=== PATIENT | male | born 1980 | race Caucasian/White ===

== ENCOUNTER 2022-05-25 14:58 | Outpatient (REF) | payer OTHER, SELFPAY | END 2022-05-25 14:59 | disposition home or self-care (01) | LOC: HO.BBR 14:58 | PROVIDERS: Visit Provider Physician Assistant | DX: D75.1 Secondary polycythemia (principal) | CPT/HCPCS: 85014; 85018; 99195 ==

== ENCOUNTER 2022-06-27 11:05 | Outpatient (REF) | payer OTHER, SELFPAY | END 2022-06-27 11:06 | disposition home or self-care (01) | LOC: HO.BBR 11:05 | PROVIDERS: Visit Provider Physician Assistant | DX: D75.1 Secondary polycythemia (principal) | CPT/HCPCS: 85014; 85018; 99195 ==

== ENCOUNTER 2022-08-15 15:32 | Emergency (ER) | payer OTHER, SELFPAY ==
--- NOTE | ~2022-08-15 | XR_ITS ---
EXAMINATION: XR FINGER, LEFT CLINICAL INFORMATION: Laceration left middle finger COMPARISON: None TECHNIQUE: 3 views of the left middle finger. FINDINGS: The bones and soft tissues are normal. No fracture. Alignment is anatomic. Joint spaces are maintained. No radiopaque foreign body is seen. XR/XR finger LT min 2V IMPRESSION: Normal finger radiographs.
[2022-08-15 16:08] VITALS: BP 149/99; PULSE 85; RESP 18; TEMP 36.6; O2SAT 97; BMI 40.3
--- NOTE | 2022-08-15 16:08 | ED.WOUNDLAC ---
HPI - Wound/Laceration General Chief Complaint: Wound/Laceration <BEBETO Juarez - Last Filed: 08/15/22 16:12> Stated Complaint: laceration left hand <BEBETO Juarez - Last Filed: 08/15/22 16:12> Time Seen by Provider: 08/15/22 17:57 <BEBETO Juarez - Last Filed: 08/15/22 16:12> Source: patient and family ( at bedside) <BEBETO Childress Last Filed: 08/15/22 18:39> Mode of arrival: ambulatory <BEBETO Childress Last Filed: 08/15/22 18:39> Limitations: no limitations <BEBETO Childress Last Filed: 08/15/22 18:39> History of Present Illness HPI narrative: 41-year-old male presenting to the ER with complaints of a middle finger laceration that occurred prior to arrival by a knife. He reports that he bought a new video game and tried to open it up with the night before his came home and he actually stabbed himself with the knife accidentally prior to arrival. Reports he is unsure if he is up-to-date on tetanus. He denies any thoughts of foreign bodies, bony tenderness, weakness, paresthesias or any other complaints or concerns at this time. <BEBETO Childress - Last Filed: 08/15/22 18:39> Onset (ago): minute(s) (Prior to arrival) <BEBETO Childress Last Filed: 08/15/22 18:39> Extremity Location: left: hand (Middle finger distal aspect) <BEBETO Childress - Last Filed: 08/15/22 18:39> Place: home <BEBETO Childress Last Filed: 08/15/22 18:39> Patient tetanus UTD: No <BEBETO Childress - Last Filed: 08/15/22 18:39> Context: accidental <BEBETO Childress Last Filed: 08/15/22 18:39> Associated symptoms: none <BEBETO Childress Last Filed: 08/15/22 18:39> Treatments prior to arrival: bandage <BEBETO Cihldress Last Filed: 08/15/22 18:39> Related Data Home Medications: Previous Rx's Medication Instructions Recorded acetaminophen 300 mg-codeine 30 mg 1 tab PO Q8H PRN pain #10 tabs 08/15/22 tablet <BEBETO Juarez - Last Filed: 08/15/22 16:12> Allergies/Adverse Reactions: Allergies Allergy/AdvReac Type Severity Reaction Status Date / Time amoxicillin Allergy Rash Verified 08/15/22 16:12 cefaclor [From Ceclor] Allergy Rash Verified 08/15/22 16:12 metoclopramide [From Reglan] Allergy Rash Verified 08/15/22 16:12 Penicillins [PCN] Allergy Rash Verified 08/15/22 16:12 <BEBETO Juarez - Last Filed: 08/15/22 16:12> Review of Systems Review of Systems: Constitutional : No Fever, No Chills, Cardiovascular : No Chest Pain, No SOB Respiratory : No Dyspnea Gastrointestinal : No abdominal pain Musculoskeletal : No Joint Swelling Skin : positive skin laceration, No Foreign bodies, No rash, No surrounding erythema Neuro : No Weakness, No Numbness/tingling Psych : No SI/HI/thoughts of self injury <BEBETO Childress - Last Filed: 08/15/22 18:39> Yes all other systems are reviewed and are negative <BEBETO Childress - Last Filed: 08/15/22 18:39> [facility] Past Medical History Attestation statement: The following information was validated with the patient. <BEBETO Childress - Last Filed: 08/15/22 18:39> Source: old records reviewed, obtained from family and nursing notes reviewed <BEBETO Childress - Last Filed: 08/15/22 18:39> Social History Social History: Social History Advance Directives: No Advance Directives Information Provided: Yes <BEBETO Juarez - Last Filed: 08/15/22 16:12> Physical Exam Vital Signs: Vital Signs: Last Vital Signs Temp 97.8 F 08/15/22 16:08 Pulse 85 08/15/22 16:08 Resp 18 08/15/22 16:08 BP 149/99 H 08/15/22 16:08 Pulse Ox 97 08/15/22 16:08 O2 Del Method 08/15/22 16:08 BMI result Body Mass Index 40.3 <BEBETO Juarez - Last Filed: 08/15/22 16:12> Vital Signs: Last Vital Signs Temp 97.8 F 08/15/22 16:08 Pulse 85 08/15/22 16:08 Resp 18 08/15/22 16:08 BP 149/99 H 08/15/22 16:08 Pulse Ox 97 08/15/22 16:08 O2 Del Method 08/15/22 16:08 BMI result Body Mass Index 40.3 vital signs have been reviewed as normal and appeared to be correct. Blood pressure 149/99 Heart rate normal. Respiration rate normal. Temperature normal. Oxygen saturation normal. <BEBETO Childress - Last Filed: 08/15/22 18:39> Appearance: Alert. Oriented X3. No acute distress. Head: Normal external exam. Normocephalic. Atraumatic. Eyes: PERRLA. EOMI. Conjunctiva and sclera normal. Eyelids normal. ENT: Pharynx normal. Uvula midline. Moist mucous membranes. Neck: Normal inspection. Neck supple. FROM. CVS: Normal heart rate and rhythm. Respiratory: No respiratory distress. Painless inspiration. Skin: Skin warm and dry. Normal skin color. Normal skin turgor. Patient with 2 cm intermediate laceration to left hand middle finger at the radial aspect near the fat pad. No active bleeding or foreign bodies or bony tenderness or obvious ligamentous or tendon injury noted. No additional rashes/lesions/lacerations noted. Extremities: Patient only has tenderness over the laceration. No bony tenderness. Otherwise all other extremities exhibit normal range of motion nontender. Neuro: Oriented X 3. No motor deficit. No sensory deficit. Reflexes normal. Normal steady gait. No focal neuro deficits noted. Vascular: + radial pulses/+ 2 distal pedal pulses/+2 dorsalis pedis b/l. Normal cap refill. No cyanosis noted to upper extremity nails and lower extremity toes nails. <BEBETO Childress - Last Filed: 08/15/22 18:39> Course Course Course Narrative: RME - 41 yo male presents today with complaints of left middle finger laceration which occurred this afternoon. Patient states that he was trying to open a video game box with a knife and accidentally cut his left middle finger. He states that he is unsure when his last tetanus immunization was. Left middle finger with 1.5cm, linear, actively oozing. Pressure dressing applied. VSS in triage. Stable to return to waiting room until treatment room becomes available. Plan: xray, will need sutures. tdap ordered <BEBETO Juarez - Last Filed: 08/15/22 16:12> RME - 41 yo male presents today with complaints of left middle finger laceration which occurred this afternoon. Patient states that he was trying to open a video game box with a knife and accidentally cut his left middle finger. He states that he is unsure when his last tetanus immunization was. Left middle finger with 1.5cm, linear, actively oozing. Pressure dressing applied. VSS in triage. Stable to return to waiting room until treatment room becomes available. Plan: xray, will need sutures. tdap ordered <BEBETO Childress - Last Filed: 08/15/22 18:39> Reevaluation(s) Reevaluation #1: Patient now status post laceration repair 6 simple running stitch. Tetanus updated. X-ray obtained and negative for any acute processes.. Will DC home with symptomatic treatment antibiotics along with instructions to return in 10-14 days for suture removal and to follow up prior if signs of infection. Patient understands agrees the plan. <BEBETO Childress - Last Filed: 08/15/22 18:39> Medications Administered Discontinued Medications Generic Name Dose Route Start Last Admin Trade Name Freq PRN Reason Stop Dose Admin Diphtheria/Tetanus/Acell Pertussis 0.5 ml 08/15/22 16:12 08/15/22 18:37 Diphth,Pertus(Acell),Tet Adult 0.5 Ml Syringe IM 08/15/22 16:13 0.5 ml .ONCE ONE Administration Lidocaine HCl 5 ml 08/15/22 17:57 08/15/22 18:37 Lidocaine Hcl 1 % Mpf 5 Ml Vial SUBCUT 08/15/22 17:58 5 ml ONCE ONE Administration <BEBETO Juarez - Last Filed: 08/15/22 16:12> Medications Administered Discontinued Medications Generic Name Dose Route Start Last Admin Trade Name Freq PRN Reason Stop Dose Admin Diphtheria/Tetanus/Acell Pertussis 0.5 ml 08/15/22 16:12 08/15/22 18:37 Diphth,Pertus(Acell),Tet Adult 0.5 Ml Syringe IM 08/15/22 16:13 0.5 ml .ONCE ONE Administration Lidocaine HCl 5 ml 08/15/22 17:57 08/15/22 18:37 Lidocaine Hcl 1 % Mpf 5 Ml Vial SUBCUT 08/15/22 17:58 5 ml ONCE ONE Administration <BEBETO Childress - Last Filed: 08/15/22 18:39> Medical Decision Making Independent Interpretation I performed an independent interpretation of an: Plain X-Ray (I reviewed the x-ray myself and agree with the radiologist reports reviewed this with the patient and at bedside they understand that it is within normal limits) <BEBETO Childress - Last Filed: 08/15/22 18:39> Radiology Impression Discussion of test interpretation with radiology: I have reviewed the radiologist's reading. <BEBETO Childress Last Filed: 08/15/22 18:39> Radiologist Impression: EXAMINATION: XR FINGER, LEFT CLINICAL INFORMATION: Laceration left middle finger? COMPARISON: None? TECHNIQUE: 3 views of the left middle finger. FINDINGS: The bones and soft tissues are normal. No fracture. Alignment is anatomic. Joint spaces are maintained. No radiopaque foreign body is seen. XR/XR finger LT min 2V IMPRESSION: Normal finger radiographs. <BEBETO Childress - Last Filed: 08/15/22 18:39> Independent Historian Clinical information obtained from an independent historian. History obtained from or confirmed by: Spouse <BEBETO Childress - Last Filed: 08/15/22 18:39> Prescription Management I considered prescription management with: Pain Medication <BEBETO Childress Last Filed: 08/15/22 18:39> Procedures Laceration Laceration 1: Site: hand (Middle finger) <BEBETO Childress Last Filed: 08/15/22 18:39> Side (If applicable): left <BEBETO Childress Last Filed: 08/15/22 18:39> Size (cm): 1 <BEBETO Childress Last Filed: 08/15/22 18:39> Description: linear <BEBETO Childress - Last Filed: 08/15/22 18:39> Depth: simple, single layer <BEBETO Childress - Last Filed: 08/15/22 18:39> Local Anesthetic: lidocaine 1% <BEBETO Childress - Last Filed: 08/15/22 18:39> Amount of anesthesia used (mL): 4 <BEBETO Childress - Last Filed: 08/15/22 18:39> Pre-repair: wound explored, irrigated extensively and deep structures intact <BEBETO Childress - Last Filed: 08/15/22 18:39> Skin layer closed with: nylon <BEBETO Childress - Last Filed: 08/15/22 18:39> Size (cm): 5-0 <BEBETO Childress - Last Filed: 08/15/22 18:39> Number of sutures: 6 <BEBETO Childress - Last Filed: 08/15/22 18:39> Technique: simple, interrupted <BEBETO Childress - Last Filed: 08/15/22 18:39> Discharge Plan Discharge Clinical Impression: Laceration <BEBETO Juarez - Last Filed: 08/15/22 16:12> Patient Disposition: Home, Self-Care <BEBETO Juarez - Last Filed: 08/15/22 16:12> Instructions: Finger Laceration (ED) <BEBETO Juarez - Last Filed: 08/15/22 16:12> Prescriptions: New acetaminophen-codeine 300-30 mg tablet 1 tab PO Q8H PRN (Reason: pain) Qty: 10 0RF <BEBETO Juarez - Last Filed: 08/15/22 16:12> Referrals: Roxanne Leblanc PA [Emergency Midlevel Provider] - 10 days (for suture removal return in 7-10 days ) <BEBETO Juarez - Last Filed: 08/15/22 16:12>
[2022-08-15] MEDS: Lidocaine HCl 1 % MPF 5 ML VIAL SUBCUT (18:37)
[2022-08-15] MEDS: Diphth,Pertus(ACell),Tet Adult 0.5 ML SYRINGE IM (18:37)
== END 2022-08-15 18:43 | disposition home or self-care (01) ==
PROVIDERS: Emergency Provider Student in an Organized Health Care Education/Training Program
DX: S61.412A Laceration without foreign body of left hand, initial encounter (principal); W26.0XXA Contact with knife, initial encounter; Y93.89 Activity, other specified; Y92.019 Unspecified place in single-family (private) house as the place of occurrence of the external cause; Y99.9 Unspecified external cause status
CPT/HCPCS: 12041; 73140; 90471; 90715; 99282; 99284

== ENCOUNTER 2022-08-24 11:33 | Emergency (ER) | payer OTHER, SELFPAY ==
--- NOTE | 2022-08-24 11:41 | ED_ITS ---
HPI - General Adult General Chief complaint: General Medical Stated complaint: Suture removal Time Seen by Provider: 08/24/22 11:41 Source: patient Mode of arrival: ambulatory Limitations: no limitations History of Present Illness HPI narrative: 41 yo male presents to the ER for suture removal. He was seen here on 07/26 after he sustained a laceration to his left middle finger while cutting open a video game box with a knife. Six sutures were placed and x-rays were negative. He reports some ongoing pain to the pulp of his finger when he pushes on it or accidentally bangs it on something. He denies any redness, warmth, drainage. Normal ROM of the digit and he denies any numbness or tingling. MD complaint: suture removal Onset (ago): day(s) Location: left and upper extremity Radiation: non-radiation Severity: mild Severity scale (1-10): 4 Quality: aching Pain Consistency: intermittent Relieving factors: rest Exacerbating factors: other (palpation) Associated symptoms: denies other symptoms Treatments prior to arrival: none Related Data Previous Rx's Medication Instructions Recorded acetaminophen 300 mg-codeine 30 mg 1 tab PO Q8H PRN pain #10 tabs 08/15/22 tablet Allergies Allergy/AdvReac Type Severity Reaction Status Date / Time amoxicillin Allergy Rash Verified 08/15/22 16:12 cefaclor [From Ceclor] Allergy Rash Verified 08/15/22 16:12 metoclopramide [From Reglan] Allergy Rash Verified 08/15/22 16:12 Penicillins [PCN] Allergy Rash Verified 08/15/22 16:12 Review of Systems Review of Systems: Yes all other systems are reviewed and are negative [facility] Social History Social History Advance Directives: No Advance Directives Information Provided: No Physical Exam ED Vital Signs: Vital Signs - 24 hr 08/24/22 11:42 Temperature 97.3 F Pulse Rate 76 Respiratory Rate 16 Blood Pressure 134/88 Pulse Oximetry 99 Oxygen Delivery Method Room Air BMI result Body Mass Index 39.4 Appearance: Alert. Oriented X3. No acute distress. HEENT: normal inspection CVS: Normal heart rate and rhythm. Pulses normal. Respiratory: No respiratory distress. Skin: Skin warm and dry. Normal skin color. Normal skin turgor. No rashes. Extremities: left middle index finger with a well healing laceration to the distal palmar portion with [address], no surround erythema or drainage. laceration is mildly tender. FROM of the digit, NV intact disally. Neuro: Oriented X 3. Grossly normal Course Course Course Narrative: 6 sutures were removed. wound healing appropriately, margins well approximated. ongoing wound care discussed. stable for d/c home Medical Decision Making Differential Diagnosis Differential Diagnoses: The differential diagnosis associated with the presentation includes appropriately healing laceration, no evidence of delayed healing or acute infection External Record Review External record reviewed: Outpatient record Prescription Management I considered prescription management with: Pain Medication recommending OTC NSAID and tylenol Critical Care Time Critical Care Time Critical Care Time: No Discharge Plan Discharge Clinical Impression: Visit for suture removal Patient Disposition: Home, Self-Care Instructions: Stitches Removal (ED) Prescriptions: No Action acetaminophen-codeine 300-30 mg tablet 1 tab PO Q8H PRN (Reason: pain) Qty: 10 0RF
[2022-08-24 11:42] VITALS: BP 134/88; PULSE 76; RESP 16; TEMP 36.3; O2SAT 99; BMI 39.4
== END 2022-08-24 11:51 | disposition home or self-care (01) ==
PROVIDERS: Emergency Provider Emergency Medicine Emergency Medical Services; PCP Physician Assistant
DX: Z48.02 Encounter for removal of sutures (principal); S61.213D Laceration without foreign body of left middle finger without damage to nail, subsequent encounter; W27.8XXD Contact with other nonpowered hand tool, subsequent encounter
CPT/HCPCS: 99282

== ENCOUNTER 2022-11-17 19:51 | Emergency (ER) | payer OTHER, SELFPAY ==
--- NOTE | ~2022-11-17 | CT_ITS ---
EXAMINATION: CTA OF THE HEAD AND NECK CLINICAL INFORMATION: Question right MCA thrombus. Right facial weakness. COMPARISON: Head CT on 11/17/2022. TECHNIQUE: Test bolus sequences followed by intravenous administration 70 mL of Omnipaque 350. Helical imaging was performed in the axial plane from the mediastinum to the skull vertex. Delayed postcontrast imaging of the head was also performed. The data was processed at the health information technologist's workstation for generation of MIP sequences. Three-dimensional volume rendered reformatted images were also generated at an offline 3-D workstation. Stenoses are assessed in accordance with NASCET criteria unless otherwise indicated. This CT examination was performed using dose optimization techniques as appropriate, variously including the following: *Automated exposure control *Adjustment of mA and/or kV according to patient size (this includes techniques or standardized protocols for targeted exams where dose is matched to indication/reason for exam; i.e. extremities or head) *Use of iterative reconstruction technique DLP: 1404 mGy-cm. FINDINGS: CTA neck: The imaged aortic arch and origins of the great vessels are normal. The common carotid arteries are widely patent. The carotid bifurcations are normal. The cervical internal carotid arteries are normal. The vertebral arteries opacify normally and are of normal caliber. The soft tissues of the neck are unremarkable. There is a reversal of the normal cervical lordosis and mild to moderate lower cervical spondylosis. The imaged portions of the lungs are clear. CTA head: The intradural vertebral arteries and basilar artery are normal. The posterior cerebral arteries are widely patent. The internal carotid arteries are of normal caliber. The BRIT and MCA vascular complexes bilaterally are normal. No abnormal attenuation is evident within the brain parenchyma. There is no pathologic enhancement on postcontrast imaging. The venous sinuses opacify normally. CT/CT angio head neck stroke IMPRESSION: Normal CT angiogram of the head and neck. Imaging findings reported to Dr. Vazquez at 9:40 PM on 11/17/2022.
--- NOTE | ~2022-11-17 | CT_ITS ---
EXAMINATION: CT HEAD WITHOUT CONTRAST (STROKE PROTOCOL) CLINICAL INFORMATION: Stroke protocol. COMPARISON: None available. TECHNIQUE: Contiguous axial imaging was performed from the skull base to vertex without intravenous administration of contrast. This CT examination was performed using dose optimization techniques as appropriate, variously including the following: *Automated exposure control *Adjustment of mA and/or kV according to patient size (this includes techniques or standardized protocols for targeted exams where dose is matched to indication/reason for exam; i.e. extremities or head) *Use of iterative reconstruction technique DLP: 649 mGy-cm FINDINGS: There is no midline shift. There is no mass effect. There is no hemorrhage. The basal cisterns appear patent. The posterior fossa is grossly within normal limits. There is no extra-axial collection. The casey-white matter differentiation is felt to be maintained. There is subtle decreased attenuation on the right involving the white matter. Image 32. This finding is equivocal. Area of ischemia here cannot be excluded. Grossly clear sinuses on the bone windows. CT/CT head for stroke IMPRESSION: There is no acute midline shift or mass effect or hemorrhage. Cannot rule out a subtle area of decreased attenuation in the parietal white matter on the right in this young patient which may suggest ischemic change here. This finding is however equivocal This critical result was discussed with Tameka Lawton at 8:40 PM hours on 11/17/2022. It was ascertained that the content and urgency of the report was understood at the time of direct communication.
[2022-11-17 19:59] VITALS: BP 141/99; PULSE 109; RESP 20; TEMP 36.8; O2SAT 96; BMI 38.3
--- NOTE | 2022-11-17 20:00 | ED_ITS ---
HPI - General Adult General Chief complaint: General Medical Stated complaint: left side facial discomfort Time Seen by Provider: 11/17/22 20:43 Source: patient Mode of arrival: ambulatory Limitations: no limitations History of Present Illness HPI narrative: Patient with no significant medical history had cold symptoms and right ear infection for last 1 week treated with doxycycline and Zithromax patient's noticed liking left eyelid around 09:00 patient had lunch without any problem no other weakness around 18:00 while gargling salt water today drooling from the right side no other motor weakness noticed no history of Lyme disease or tick bite no fever no chills no headache Related Data Previous Rx's Medication Instructions Recorded acetaminophen 300 mg-codeine 30 mg 1 tab PO Q8H PRN pain #10 tabs 08/15/22 tablet artificial tears(hypromellose) 0.5 1 drp ophthalmic-Right Q2-4H PRN 11/17/22 % eye drops (Tears Lubricant) dry eyes #15 mL prednisone 20 mg tablet 60 mg PO DAILY #21 tabs 11/17/22 valacyclovir 1 gram tablet 1,000 mg PO TID #21 tabs 11/17/22 (Valtrex) Allergies Allergy/AdvReac Type Severity Reaction Status Date / Time amoxicillin Allergy Rash Verified 11/17/22 20:10 cefaclor [From Ceclor] Allergy Rash Verified 11/17/22 20:10 metoclopramide [From Reglan] Allergy Rash Verified 11/17/22 20:10 Penicillins [PCN] Allergy Rash Verified 11/17/22 20:10 Review of Systems Review of Systems: Yes all other systems are reviewed and are negative [facility] Social History Social History Alcohol intake: never Smoked in Last 30 Days: No Use of substances other than those prescribed or required for medical reasons: No Advance Directives: No Advance Directives Information Provided: Yes Physical Exam ED Vital Signs: Vital Signs - 24 hr 11/17/22 19:59 11/17/22 22:12 Temperature 98.3 F 98.5 F Pulse Rate 109 H 89 Respiratory Rate 20 16 Blood Pressure 141/99 H 135/78 Pulse Oximetry 96 99 Oxygen Delivery Method Room Air Room Air BMI result Body Mass Index 38.3 Appearance: Alert. Oriented X3. No acute distress. Eyes: PERRLA, No Nystagmus ENT: Pharynx normal. Oral Mucosa moist Neck: Normal inspection. Neck supple. CVS: Normal heart rate and rhythm. Pulses normal. Respiratory: No respiratory distress. Equal air entry bilateral, no wheezing/rales/rhonchi Abdomen: Soft and nontender. Bowel sounds are present, no mass palpable, no CVA tenderness Skin: Skin warm and dry. Normal skin color. Normal skin turgor. Extremities: No lower extremity edema. No calf tenderness Neuro: Oriented X 3. No motor deficit. 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 although forehead spared NIH Stroke Scale Internal: Initial- Upon Arrival Level of Consciousness: Alert Level of Consciousness Questions: Answers both questions correctly Level of Consciousness Commands: Performs both tasks correctly Best Gaze: Normal Visual: No visual loss Facial Palsy: Partial paralysis Motor Arm (Right): No drift Motor Arm (Left): No drift Motor Leg (Right): No drift Motor Leg (Left): No drift Limb Ataxia: Absent Sensory: Normal Best Language: No aphasia Dysarthia: Normal Extinction and Inattention: No abnormality Score: 2 Course Course Course Narrative: This is a 42-year-old male, with a past medical history of anxiety, who presents to the emergency department with complaints of left sided facial droop since today. Pt states that he was recently diagnosed with a URI, has sore throat and ear infection, was prescribed doxycycline and steroids. Was gargling salt water today and noticed that he has drooping of his left side of his mouth - at 03:00PM this afternoon. Patient also having lagging left eyelid with blinking which started this morning. Patient is anxious, Strength 5/5 in upper and lower extremities. Sensation intact bilaterally. Negative rhomberg, able to perform heel to dexter test. Left sided facial droop and delay in blinking on the left. VSS. Ambulatory, no ataxia. Able to wrinkle forehead. Oral pharynx with exudates noted, oral pharynx is erythematous. Plan: CT head and labs ordered. CT head stat; providers in main ER made aware. Charge nurse made aware. 2039 - Received phone call from [facility] - Dr. Patten, who reports decreased attenuation in the parietal white matter on the right. Discussed with attending physician Dr. Leggett, pt placed in ED06, CT head and neck ordered. Medications Administered Discontinued Medications Generic Name Dose Route Start Last Admin Trade Name Edwina PRN Reason Stop Dose Admin Iohexol 100 ml 11/17/22 21:14 11/17/22 21:15 Iohexol 350 Mg/Ml 100 Ml Infus..Btl IV 11/17/22 21:15 70 ml ONCE ONE Administration Prednisone 60 mg 11/17/22 21:41 11/17/22 22:27 Prednisone 20 Mg Tablet PO 11/17/22 21:42 60 mg ONCE ONE Administration Valacyclovir HCl 1,000 mg 11/17/22 21:41 11/17/22 22:27 Valacyclovir Hcl 1,000 Mg Tablet PO 11/17/22 21:42 1,000 mg ONCE ONE Administration Medical Decision Making Medical Decision Making [facility] Narrative: 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 11/17/22 20:25 11/17/22 20:25 Labs: Lab Results 11/17/22 11/17/22 11/17/22 Range/Units 20:25 20:25 20:25 WBC 8.2 (4.8-10.8) X10*3/uL RBC 6.58 H (4.60-5.80) X10*6/uL Hgb 17.5 (14.0-18.0) g/dl Hct 52.6 H (42.0-52.0) % MCV 79.9 L (80.0-98.0) fL MCH 26.6 L (27.0-33.0) pg MCHC 33.3 (31.0-36.0) g/dl RDW 14.8 (11.0-16.0) % Plt Count 231 (160-400) X10*3/uL MPV 9.1 L (9.4-12.4) fL Immature Gran % (Auto) 0.2 (0.0-0.4) % Neut % (Auto) 55.4 (45-73) % Lymph % (Auto) 28.8 (20-40) % Waller % (Auto) 12.0 H (2-11) % Eos % (Auto) 3.0 (0-4) % Baso % (Auto) 0.6 (0-2) % Lymph # (Auto) 2.4 (1.2-4.9) X10*3/uL Waller # (Auto) 1.0 (0.1-1.2) X10*3/uL Eos # (Auto) 0.3 (0.0-0.4) X10*3/uL Baso # (Auto) 0.1 (0.0-0.2) X10*3/uL Abs Immat Gran (auto) 0.02 (0.00-0.03) X10*3/uL Absolute Neuts (auto) 4.6 (2.0-8.3) x10*3/uL Absolute Nucleated RBC 0.000 (0.0-0.012) X10*3/uL Nucleated RBC % (auto) 0.0 (0.0-0.2) /100WBC Smear Tech's Comments VERIFIED ESR (0-15) MM/HR PT 13.1 (10.0-13.1) SEC INR 1.1 (0.9-1.1) APTT 29.6 (26.0-36.4) SEC Sodium 137 (135-145) mmol/L Potassium 4.2 (3.3-5.1) mmol/L Chloride 99 (96-108) mmol/L Carbon Dioxide 29 (22-29) mmol/L Anion Gap 13 (12-20) BUN 10 (9-16) mg/dL Creatinine 0.99 (0.5-1.4) mg/dL Estim Creat Clear Calc 105.5 Estimated GFR > 60 Random Glucose 103 (60-115) mg/dL Calcium 9.3 (8.4-10.2) mg/dL Magnesium 1.8 (1.6-2.6) mg/dL Total Bilirubin 2.3 H (0.0-1.0) mg/dL Direct Bilirubin 0.5 (0.0-0.5) mg/dL AST 18 (5-37) U/L ALT 33 (0-40) U/L Alkaline Phosphatase 61 (39-117) U/L C-Reactive Protein 0.47 (< or = 0.50) mg/dL Total Protein 6.5 (6.5-8.0) g/dL Albumin 3.9 (3.5-5.0) g/dL Lipase 30 (8-78) U/L S. pyogenes GrpA LUX (Negative) 11/17/22 11/17/22 Range/Units 20:25 20:25 WBC (4.8-10.8) X10*3/uL RBC (4.60-5.80) X10*6/uL Hgb (14.0-18.0) g/dl Hct (42.0-52.0) % MCV (80.0-98.0) fL MCH (27.0-33.0) pg MCHC (31.0-36.0) g/dl RDW (11.0-16.0) % Plt Count (160-400) X10*3/uL MPV (9.4-12.4) fL Immature Gran % (Auto) (0.0-0.4) % Neut % (Auto) (45-73) % Lymph % (Auto) (20-40) % Waller % (Auto) (2-11) % Eos % (Auto) (0-4) % Baso % (Auto) (0-2) % Lymph # (Auto) (1.2-4.9) X10*3/uL Waller # (Auto) (0.1-1.2) X10*3/uL Eos # (Auto) (0.0-0.4) X10*3/uL Baso # (Auto) (0.0-0.2) X10*3/uL Abs Immat Gran (auto) (0.00-0.03) X10*3/uL Absolute Neuts (auto) (2.0-8.3) x10*3/uL Absolute Nucleated RBC (0.0-0.012) X10*3/uL Nucleated RBC % (auto) (0.0-0.2) /100WBC Smear Tech's Comments ESR 2 (0-15) MM/HR PT (10.0-13.1) SEC INR (0.9-1.1) APTT (26.0-36.4) SEC Sodium (135-145) mmol/L Potassium (3.3-5.1) mmol/L Chloride (96-108) mmol/L Carbon Dioxide (22-29) mmol/L Anion Gap (12-20) BUN (9-16) mg/dL Creatinine (0.5-1.4) mg/dL Estim Creat Clear Calc Estimated GFR Random Glucose (60-115) mg/dL Calcium (8.4-10.2) mg/dL Magnesium (1.6-2.6) mg/dL Total Bilirubin (0.0-1.0) mg/dL Direct Bilirubin (0.0-0.5) mg/dL AST (5-37) U/L ALT (0-40) U/L Alkaline Phosphatase (39-117) U/L C-Reactive Protein (< or = 0.50) mg/dL Total Protein (6.5-8.0) g/dL Albumin (3.5-5.0) g/dL Lipase (8-78) U/L S. pyogenes GrpA LUX Negative (Negative) Radiology Impression Discussion of test interpretation with radiology: I have reviewed the radiologist's reading. Radiologist Impression: CT/CT angio head? neck stroke IMPRESSION: ? Normal CT angiogram of the head and neck. ? Imaging findings reported to Dr. Vazquez at 9:40 PM on 11/17/2022. Discharge Plan Discharge Clinical Impression: Eubanks's palsy Patient Disposition: Home, Self-Care Instructions: Eubanks Palsy (ED) Additional Instructions: Take prednisone and AltrX has prescribed Facial muscle exercises Eye care Follow-up with neurologist Prescriptions: New prednisone 20 mg tablet 60 mg PO DAILY Qty: 21 0RF valacyclovir [Valtrex] 1 gram tablet 1,000 mg PO TID Qty: 21 0RF Tears Lubricant Eye Drop 0.5 % drops 1 drp ophthalmic-Right Q2-4H PRN (Reason: dry eyes) Qty: 15 0RF No Action acetaminophen-codeine 300-30 mg tablet 1 tab PO Q8H PRN (Reason: pain) Qty: 10 0RF Referrals: Ameena Echeverria MD [Physician] - 1 week Interventions: ED Discharge Assessment Last Done: 11/17/22 22:28 Discharge Date/Time: 11/17/22 22:40
[2022-11-17 20:32] LABS: Basophils Absolute Auto 0.1 X10*3/uL (0.0-0.2); Basophils Percent Auto 0.6 % (0-2); Eosinophils Absolute Auto 0.3 X10*3/uL (0.0-0.4); Hematocrit 52.6 % (42.0-52.0); Hemoglobin 17.5 g/dl (14.0-18.0); Imm Gran Abs Auto 0.02 X10*3/uL (0.00-0.03); Imm Gran Pct Auto 0.2 % (0.0-0.4); Lymphocytes Absolute Auto 2.4 X10*3/uL (1.2-4.9); Lymphocytes Percent Auto 28.8 % (20-40); MANUAL DIFF FLAG SCAN; Mean Corpuscular HGB Conc 33.3 g/dl (31.0-36.0); Mean Corpuscular Hemoglobin 26.6 pg (27.0-33.0); Mean Corpuscular Volume 79.9 fL (80.0-98.0); Mean Platelet Volume 9.1 fL (9.4-12.4); Neutrophils Absolute Auto 4.6 x10*3/uL (2.0-8.3); Neutrophils Percent Auto 55.4 % (45-73); Platelet Count 231 X10*3/uL (160-400); Red Blood Count 6.58 X10*6/uL (4.60-5.80); Red Cell Distribution Width 14.8 % (11.0-16.0); SCAN SMEAR FLAG 1; White Blood Count 8.2 X10*3/uL (4.8-10.8)
[2022-11-17 20:37] LABS: INTERNATIONAL NORM RATIO 1.1 (0.9-1.1); Prothrombin Time 13.1 SEC (10.0-13.1)
[2022-11-17 20:39] LABS: Partial Thromboplastin Time 29.6 SEC (26.0-36.4)
[2022-11-17 20:54] LABS: Alanine Aminotransferase 33 U/L (0-40); Albumin Level 3.9 g/dL (3.5-5.0); Alkaline Phosphatase 61 U/L (39-117); Anion Gap 13 (12-20); Aspartate Amino Transferase 18 U/L (5-37); Bilirubin Direct 0.5 mg/dL (0.0-0.5); Bilirubin Total 2.3 mg/dL (0.0-1.0); Blood Urea Nitrogen 10 mg/dL (9-16); Calcium 9.3 mg/dL (8.4-10.2); Carbon Dioxide 29 mmol/L (22-29); Chloride 99 mmol/L (96-108); Creatinine Clr Calc Pharmacy 105.5; Estimated Glomerular Filt Rate > 60; Glucose Random 103 mg/dL (60-115); Lipase 30 U/L (8-78); Magnesium 1.8 mg/dL (1.6-2.6); Potassium 4.2 mmol/L (3.3-5.1); Sodium 137 mmol/L (135-145); Total Protein 6.5 g/dL (6.5-8.0)
[2022-11-17 20:55] LABS: SLIDE REVIEW VERIFIED
[2022-11-17] MEDS: iohexoL 350 MG/ML 100 ML INFUS..BTL IV (21:15)
[2022-11-17 21:54] LABS: IDNOW Serial# 08D9AD1C; Strep A Nucleic Acid Negative (Negative)
[2022-11-17 22:12] VITALS: BP 135/78; PULSE 89; RESP 16; TEMP 36.9; O2SAT 99
[2022-11-17 22:21] LABS: C Reactive Protein 0.47 mg/dL (< or = 0.50)
[2022-11-17] MEDS: valACYclovir HCL 1,000 MG TABLET 1000 MG PO (22:27)
[2022-11-17] MEDS: predniSONE 20 MG TABLET 60 MG PO (22:27)
[2022-11-17 22:45] LABS: Erythrocyte Sedimentation Rate 2 MM/HR (0-15)
[2022-11-21 22:24] LABS: Lyme Abs Screen <0.90 index
== END 2022-11-17 22:40 | disposition home or self-care (01) ==
PROVIDERS: Physician Assistant Medical; Emergency Provider Internal Medicine
DX: G51.0 Bell's palsy (principal); R51.9 Headache, unspecified; J02.9 Acute pharyngitis, unspecified; Z79.899 Other long term (current) drug therapy
CPT/HCPCS: 36415; 70450; 70496; 70498; 80048; 80076; 83690; 83735; 85025; 85610; 85652; 85730; 86140; 86617; 86618; 87651; 99284; Q9967

== ENCOUNTER 2023-07-17 08:13 | Outpatient (REF) | payer OTHER, SELFPAY | END 2023-07-17 08:14 | disposition home or self-care (01) | LOC: HO.BBR 08:13 | PROVIDERS: Visit Provider Emergency Medicine | DX: D75.1 Secondary polycythemia (principal) | CPT/HCPCS: 85014; 85018; 99195 ==

== ENCOUNTER 2024-02-03 13:20 | Emergency (ER) | payer OTHER, SELFPAY ==
[2024-02-03 13:26] VITALS: BP 115/86; PULSE 106; RESP 17; TEMP 36.9; O2SAT 96; BMI 39.6
--- NOTE | 2024-02-03 13:30 | ED.GENADULT ---
HPI - General Adult General Chief complaint: General Medical Stated complaint: multiple bee stings Time Seen by Provider: 02/03/24 13:33 Source: patient and RN notes reviewed Mode of arrival: ambulatory Limitations: no limitations History of Present Illness ED Provider: Tameka Lawton PA-C HPI narrative: This is a 43-year-old male who presents emergency department with multiple bee stings which occurred at 1:00 p.m. today. Patient states that he was weed whacking at his house when suddenly a bee stung him on his head, back, and groin. No history of allergic reactions to bees. He states that he became nervous and took 1-1/2 tablets of Benadryl. He believes that the stingers are still present in his skin. He denies any shortness breath, difficulty swallowing, numbness or tingling, rashes, itchiness, shortness for breath or chest pain. No other complaints or concerns at this time. MD complaint: Bee sting Onset (ago): hour(s) Exacerbating factors: none Associated symptoms: denies other symptoms Treatments prior to arrival: none Related Data Previous Rx's ?Medication ?Instructions ?Recorded acetaminophen 300 mg-codeine 30 mg 1 tab PO Q8H PRN pain #10 tabs 08/15/22 tablet artificial tears(hypromellose) 0.5 1 drp ophthalmic-Right Q2-4H PRN 11/17/22 % eye drops (Tears Lubricant) dry eyes #15 mL prednisone 20 mg tablet 60 mg (3 x 20 mg) PO DAILY #21 tabs 11/17/22 valacyclovir 1 gram tablet 1,000 mg PO TID #21 tabs 11/17/22 (Valtrex) Allergies Allergy/AdvReac Type Severity Reaction Status Date / Time amoxicillin Allergy Rash Verified 02/03/24 13:31 cefaclor [From Ceclor] Allergy Rash Verified 02/03/24 13:31 metoclopramide [From Reglan] Allergy Rash Verified 02/03/24 13:31 Penicillins [PCN] Allergy Rash Verified 02/03/24 13:31 Review of Systems Review of Systems: Yes all other systems are reviewed and are negative Constitutional: Constitutional: Reports as per [facility] Social History Social History Alcohol intake: never Advance Directives: No Advance Directives Information Provided: No Do you have a plan to hurt others: No Plan Physical Exam ED Vital Signs: Vital Signs - 24 hr 02/03/24 13:26 02/03/24 14:00 Temperature 98.5 F 98.5 F Pulse Rate 106 H 106 H Respiratory Rate 17 17 Blood Pressure 115/86 115/86 Pulse Oximetry 96 96 Oxygen Delivery Method Room Air Room Air BMI result Body Mass Index 39.6 Const General: cooperative, comfortable and no acute distress Orientation/consciousness: patient oriented x3 Limitations: no limitations HENMT Head: Yes normal to inspection, Yes normocephalic and Yes atraumatic Ears: hearing grossly normal bilaterally General nose exam: Normal external nose present Face and sinus: Yes normal facial exam Mouth: Normal oral and palatal mucosa present, oropharynx normal and moist mucous membranes Throat: Yes posterior oropharynx normal Eyes General: appearance normal, both eyes and all related structures Eyelids: Yes eyelids normal Conjunctivae: conjunctivae normal Sclerae: sclerae normal Pupils: Equal, round and reactive pupils present EOM: EOMs intact bilaterally Neck Neck: Yes normal visual inspection, Yes full ROM and Yes no lymphadenopathy Lymphatic: no lymphadenopathy noted Chest Chest palpation & inspection: normal inspection of the chest Resp Effort & Inspection: normal respiratory effort and able to speak in complete sentences Auscultation: clear to auscultation bilaterally, no crackles, no rales, no rhonchi and no wheezes Cardio Rate: regular rate Rhythm: regular rhythm Heart sounds: S1 normal heart sound present and S2 normal heart sound present GI Inspection: Yes normal to inspection Skin Other: Right side of head, with pinpoint abrasion, with mild surrounding erythema, and tenderness, consistent with bee sting. Right thoracic back, with pinpoint insect sting, with small surrounding erythema, Right inner groin, with pinpoint insect sting, no sting or present, mild surrounding erythema. There is a ingrown hair noted, which was removed using tweezers as this was thought to be a stinger General skin exam: no rashes or lesions noted Trauma: no lacerations or abrasions Wounds: no wounds Neuro General: patient oriented x3 and moves all extremities Cranial nerves: Yes Equal, round and reactive pupils present Extrem General: Yes normal to inspection Right upper extremity: normal to inspection Left upper extremity: normal to inspection Right lower extremity: normal to inspection Left lower extremity: normal to inspection Course Course Course Narrative: This is a rapid medical exam. Defer additional HPI, ROS, PE to primary provider. 41-year-old male here with multiple bee stings after being stung greater than 1 hour ago. No airway involvement or angioedema. Took Benadryl prior to arrival. Unable to visualize in triage -Brodie Ross APRN Medical Decision Making Medical Decision Making MDM Narrative: this is a 43-year-old male who presents emergency department with complaints of bee sting. Patient was stung 3 times in the head, back, and groin. No history of allergic reaction in the past. On arrival, vital signs within normal limits. He is speaking in full sentences under no acute distress, lungs are clear to auscultation bilaterally. Multiple stings noted to the back of the right head, right back, and right inner groin. It was thought that there was a sting or left in the right inner groin, this was removed using tweezers, this turned out to be an ingrown hair. Discussed findings with patient. He is not having an allergic reaction, given strict return precautions. He understands and agrees with plan. Patient stable for discharge Differential Diagnosis Differential Diagnoses: The differential diagnosis associated with the presentation includes Anaphylaxis-unlikely, bee sting, cellulitis, insect bite Discharge Plan Discharge Clinical Impression: Bee sting Patient Disposition: Home, Self-Care Instructions: Insect Bite or Sting (ED) Additional Instructions: You were seen in the emergency department after being stung by multiple bees today. You did not have any stingers left in these sites. Continue applying ice to the regions to help relieve his swelling, pain, and itching. You may continue to take Benadryl as needed for itching and swelling. Drink plenty of fluids get plenty of rest. If any new or worsening symptoms occur including but not limited to difficulty swallowing, breathing, shortness breast, chest pain, please seek emergent care. Prescriptions: No Action acetaminophen-codeine 300-30 mg tablet 1 tab PO Q8H PRN (Reason: pain) Qty: 10 0RF prednisone 20 mg tablet 60 mg PO DAILY Qty: 21 0RF valacyclovir [Valtrex] 1 gram tablet 1,000 mg PO TID Qty: 21 0RF Tears Lubricant Eye Drop 0.5 % drops 1 drp ophthalmic-Right Q2-4H PRN (Reason: dry eyes) Qty: 15 0RF Interventions: ED Discharge Assessment Last Done: 02/03/24 14:00 Discharge Date/Time: 02/03/24 14:05 Print Language: Romansh
[2024-02-03 14:00] VITALS: BP 115/86; PULSE 106; RESP 17; TEMP 36.9; O2SAT 96
== END 2024-02-03 14:05 | disposition home or self-care (01) ==
PROVIDERS: Emergency Provider Emergency Medicine
DX: T63.441A Toxic effect of venom of bees, accidental (unintentional), initial encounter (principal); Y92.017 Garden or yard in single-family (private) house as the place of occurrence of the external cause
CPT/HCPCS: 99282; 99283